=== PATIENT | female | born 1955 | race Caucasian/White ===

== ENCOUNTER → 2021-03-25 14:11 | Outpatient (CLI) | payer MEDICARE, BC, SELFPAY ==
--- NOTE | 2021-03-25 14:17 | DI.RAD.S_ITS ---
PROCEDURE: XR FOOT LT MIN 3V INDICATIONS: injury 5wk ago to 4th/5th toe, ecchymosis, still hurts TECHNIQUE: 3 views of the foot were acquired. COMPARISON: [facility], , FOOT 3V RIGHT, 03/02/2008, 17:19. FINDINGS: Bones: No fractures or dislocations. No suspicious bony lesions. Soft tissues: No tibiotalar joint effusion. Achilles tendon appears normal. IMPRESSION: Unremarkable left foot radiographs Approved by: Sim Robison M.D. on 03/25/2021 at 13:58
== END ==
PROVIDERS: Referring Provider Physician Assistant; Visit Provider Physician Assistant
DX: S99.922A Unspecified injury of left foot, initial encounter (principal); X58.XXXA Exposure to other specified factors, initial encounter
CPT/HCPCS: 73630

== ENCOUNTER → 2024-03-23 18:09 | Outpatient (CLI) | payer MEDICARE, BC, SELFPAY ==
--- NOTE | 2024-03-23 18:11 | DI.RAD.S_ITS ---
PROCEDURE: XR FOOT RT MIN 3V INDICATIONS: Right foot and ankle injury TECHNIQUE: 3 views of the foot were acquired. COMPARISON: None. FINDINGS: Bones: Minimally displaced fracture is seen at the 2nd metatarsal base. No a dee for additional midfoot fractures is compromised by overlapping osseous structures. Soft tissues: Nonspecific soft tissue edema. IMPRESSION: Minimally displaced fracture of the 2nd metatarsal base. Consider CT or MRI for further evaluation and to exclude additional midfoot injuries. Approved by: Nagi Díaz M.D. on 03/23/2024 at 18:45
--- NOTE | 2024-03-23 18:11 | DI.RAD.S_ITS ---
PROCEDURE: XR ANKLE RT MIN 3V INDICATIONS: Right foot and ankle injury TECHNIQUE: 3 views of the ankle were acquired. COMPARISON: None. FINDINGS: Bones: No acute fractures or dislocations. Ankle mortise is normally aligned. No suspicious bony lesions. Tiny plantar calcaneal enthesophyte. Soft tissues: No tibiotalar joint effusion. Achilles tendon appears normal. IMPRESSION: No acute osseous abnormality. If there is continued clinical concern or persistent symptoms, repeat radiographs or cross-sectional imaging (e.g. CT, MRI) may be helpful for further evaluation. Approved by: Nagi Díaz M.D. on 03/23/2024 at 18:42
== END ==
LOC: RAD 18:10
PROVIDERS: Referring Provider Physician Assistant Surgical; Visit Provider Physician Assistant Surgical
DX: S92.324A Nondisplaced fracture of second metatarsal bone, right foot, initial encounter for closed fracture (principal); S99.911A Unspecified injury of right ankle, initial encounter; X58.XXXA Exposure to other specified factors, initial encounter
CPT/HCPCS: 73610; 73630

== ENCOUNTER → 2024-03-31 17:06 | Outpatient (CLI) | payer MEDICARE, BC, SELFPAY ==
--- NOTE | 2024-03-31 17:07 | DI.MRI.S_ITS ---
PROCEDURE: MR FOOT RT WO CON INDICATIONS: CLOSED ND FX OF 2ND METATARSAL RT FOOT TECHNIQUE: Multiphasic, multisequence MRI of the forefoot was performed, without intravenous contrast administration. COMPARISON: [facility], CR, XR FOOT RT MIN 3V, 03/23/2024, 18:17. FINDINGS: Image quality: Excellent. Bones and joints: Minimally displaced intra-articular fracture is seen involving the 2nd metatarsal base with surrounding osseous edema. Small nondisplaced fractures are seen at the 3rd metatarsal base and distal 2nd cuneiform. Mild scattered degenerative changes of the interphalangeal joints of the toes. Degenerative edema is seen within the lateral hallux sesamoid. No suspicious intraosseous lesion. Soft tissues: Lisfranc ligament appears to be intact. Mild soft tissue edema is seen surrounding the midfoot fractures. There is grade 2-3 fatty infiltration of the intrinsic foot musculature consistent with chronic denervation changes. Visualized flexor and extensor tendons appear intact, without tenosynovitis. The distal insertions of the peroneus brevis and longus tendons appear intact. Sagittal images demonstrate no evidence for plantar plate tears. IMPRESSION: Minimally displaced intra-articular fracture of the 2nd metatarsal base with surrounding osseous edema. Additional small nondisplaced fractures of the 3rd metatarsal base and distal 2nd cuneiform with surrounding edema. Lisfranc ligament appears to remain intact. Approved by: Nagi Díaz M.D. on 04/01/2024 at 15:15
== END ==
PROVIDERS: Referring Provider Physician Assistant Medical; Visit Provider Physician Assistant Medical
DX: S92.324A Nondisplaced fracture of second metatarsal bone, right foot, initial encounter for closed fracture (principal); S92.334A Nondisplaced fracture of third metatarsal bone, right foot, initial encounter for closed fracture; X58.XXXA Exposure to other specified factors, initial encounter
CPT/HCPCS: 73718

== ENCOUNTER 2024-04-16 16:01 | Emergency (ER) | payer MEDICARE, BC, SELFPAY ==
[2024-04-16] VITALS (12 sets, daily range): BP systolic 130–158; BP diastolic 65–90; PULSE 100–123; RESP 13–20; TEMP 37.1; O2SAT 96–100; BMI 23.1
--- NOTE | 2024-04-16 16:10 | EKG_ITS ---
[address] [address] Test Date: 2024-04-16 Pat Name: Jo Hope Department: [facility] Room: Gender: Female Generator Operator: : 1955 Requested By: Order Number: [id number] Reading MD: Luis Fernando Ha MD Measurements Intervals [place] Rate: 112 P: 51 MT: 166 QRS: -64 QRSD: 98 T: 83 QT: 334 QTc: 455 Interpretive Statements Sinus tachycardia Incomplete right bundle branch block Left anterior fascicular block NO PRIOR TRACING Electronically Signed On 04-16-2024 16:28:11 PDT by Luis Fernando Ha MD
--- NOTE | 2024-04-16 16:10 | DI.RAD.S_ITS ---
PROCEDURE: XR CHEST 1V INDICATIONS: chest pain TECHNIQUE: One view of the chest was acquired. COMPARISON: None. FINDINGS: Surgical changes and devices: Surgical clips overlie the right lower lung field Lungs and pleura: Lungs are clear. No pleural effusions or pneumothorax. Mediastinum: Mediastinal contours appear normal. Heart size is normal. Bones and chest wall: No suspicious bony lesions. Overlying soft tissues appear unremarkable. IMPRESSION: No acute cardiopulmonary abnormality is seen. Approved by: Hanny Boss M.D.,Ph.D. on 04/16/2024 at 17:14
[2024-04-16 16:33] LABS: Add Manual Diff / Slide Review NO; Basophils Absolute Auto 100 /uL (0-100); Basophils Percent Auto 0.7 % (0-2); Eosinophils Absolute Auto 0 /uL (0-450); Eosinophils Percent Auto 0.2 % (2-4); Hematocrit 38.8 % (36-46); Hemoglobin 13.3 g/dL (12.0-16.0); Lymphocytes Absolute Auto 1000 /uL (1100-4500); Lymphocytes Percent Auto 11.7 % (25-40); Mean Corpuscular HGB Conc 34.3 % (30-36); Mean Corpuscular Hemoglobin 32.4 PG (26-34); Mean Corpuscular Volume 94.6 fL (80-100); Monocytes Absolute Auto 900 /uL (0-900); Monocytes Percent Auto 10.1 % (3-14); Neutrophils Absolute Auto 6700 /uL (1500-7000); Neutrophils Percent Auto 77.3 % (50-75); Platelet Count 228 X10^3/uL (150-400); Red Cell Distribution Width 14.6 % (11.6-14.8); White Blood Cell Count 8.7 X10^3/uL (4.5-11.0)
[2024-04-16 16:39] LABS: INR 0.9 (0.9-1.3); Prothrombin Time 10.4 SECONDS (9.4-12.5)
[2024-04-16 16:41] LABS: PTT Partial Thromboplastin Tim 32 SECONDS (25.1-36.5)
[2024-04-16 16:42] LABS: Alanine Aminotransferase 36 IU/L (<35); Albumin 4.8 g/dL (3.5-5.0); Albumin Globulin Ratio 1.9 (1.0-2.8); Alkaline Phosphatase 66 U/L (38-126); Aspartate Aminotransferase 38 IU/L (14-36); Bilirubin Total 0.6 mg/dL (0.2-1.3); Blood Urea Nitrogen 16 mg/dL (7-17); Carbon Dioxide 24 mmol/L (22-32); Chloride 102 mmol/L (98-107); Creatine Kinase 100 U/L (30-135); Estimated Glomerular Filt Rate > 60 mL/min (>60); Globulin 2.5 g/dL (1.7-4.1); Glucose 123 mg/dL (80-110); HEMOLYSIS < 15 (0-50); Lipase 78 U/L (23-300); Magnesium 2.1 mg/dL (1.6-2.3); Potassium 3.9 mmol/L (3.4-5.1); Sodium 135 mmol/L (137-145); Total Protein 7.3 g/dL (6.3-8.2)
[2024-04-16 16:53] LABS: NT-proBNP (BNP-Adult 18+) 182 pg/mL (<125); Troponin I < 0.012 ng/mL (0.01-0.034)
[2024-04-16] MEDS: MAG HYDROX/ALUMINUM/SIMETH SUS 20 ML, LIDOCAINE VISCOUS 2% 15 ML PO (18:08)
--- NOTE | 2024-04-16 18:12 | ED_ITS ---
HPI - Chest Pain General Chief Complaint: Chest Pain Stated Complaint: chest pain Time Seen by Provider: 04/16/24 17:36 Source: patient Mode of arrival: Wheelchair Limitations: no limitations History of Present Illness HPI narrative: Patient is a 69-year-old female history of hyperlipidemia presenting today with chest pain. She reports that she broke her foot on March 08 she was not evaluated for her foot until 2 weeks later. On March 09 she traveled from [place] to [place] to stay here for the next 5-6 weeks. She eventually saw orthopedics she was given a boot crutches and walker. She is set to go back to [place] in the next few days. She has had increasing chest pain over the last 7-10 days. No provocation or palliation. It Is nonradiating. It is in the center of her chest. She denies any sort of leg swelling or shortness of breath. She is now out of the walking boot and in tennis shoes. She has no family history of coronary artery disease she has no personal history of coronary artery disease. She is noted to be tachycardic. She reports that she took 2 Sudafed she has been having allergies over the last few days Related Data Home Medications Medication Instructions Recorded Confirmed CHOLECALCIFEROL (VITAMIN D3) 2,000 iu PO QDAY ##0 06/19/11 05/02/22 (Vitamin D) CMP Estriol Cream 0.1% vaginal 03/27/22 05/02/22 vibegron 75 mg tablet (Gemtesa) 75 mg PO DAILY 03/27/22 05/02/22 amitriptyline 25 mg tablet 25 mg PO ONCE PM 03/23/24 03/23/24 atorvastatin 20 mg tablet 20 mg PO DAILY 03/23/24 03/23/24 baclofen 20 mg tablet 20 mg PO 3XD 03/23/24 03/23/24 Previous Rx's Medication Instructions Recorded fluticasone propionate 50 0 intranasal SEE INSTRUCTIONS ##1 04/02/17 mcg/actuation nasal spray,suspension omeprazole 20 mg capsule,delayed 20 mg PO BID #180 caps 04/02/17 release alprazolam 1 mg tablet 1 mg PO BIDP PRN #60 tabs 10/02/17 levothyroxine 25 mcg tablet 0 PO SEE INSTRUCTIONS #45 tabs 10/02/17 lidocaine 5 % topical cream 1 applic topical TID PRN pain #30 04/06/22 grams Allergies Allergy/AdvReac Type Severity Reaction Status Date / Time benzoyl peroxide Allergy Mild rash Unverified 03/23/24 17:10 [BENZOYL PEROXIDE] etodolac [ETODOLAC] Allergy Mild rash Unverified 03/23/24 17:10 Patient History Medical History Anxiety Osteoporosis Disease of spine Foot pain Cervical spine disease Carpal tunnel syndrome Mumps Measles Chicken pox Painful menstrual periods Ovarian cyst Heavy menstrual period Abnormal Pap smear of cervix (~2006) Kidney disease Hematuria Irritable bowel syndrome (~2011) Surgical History Anesthesia History of cholecystectomy (~01/2022) History of elbow surgery (~07/2012) History of carpal tunnel release (~12/2011) S/P lumpectomy, right breast (~09/2006) Status post hysterectomy with oophorectomy (~05/2006) Status post colonoscopy Family History Father Stroke Mother Dementia Brother Non-Hodgkin lymphoma Sister Osteoarthritis Grandfather Lung cancer Daughter Cancer Social History Smoking Status: Never smoker Smoking Status: Never smoker Substance Use Type: does not use Exam Initial Vital Signs Initial Vital Signs: Vital Signs Temperature 98.8 F 04/16/24 16:05 Pulse Rate 122 H 04/16/24 16:05 Respiratory Rate 18 04/16/24 16:05 Blood Pressure 148/70 H 04/16/24 16:05 Pulse Oximetry 100 04/16/24 16:05 Oxygen Delivery Method Room Air 04/16/24 16:05 GENERAL: Alert pleasant 69-year-old female and in [no acute] distress. HEENT: Head atraumatic,EOMI, pupils reactive, face symmetric, [moist] mucous membranes CARDIOVASCULAR: Regular rate and rhythm without murmurs, rubs or gallops. RESPIRATORY: Breath sounds equal bilaterally, no wheezes rales or rhonchi. ABDOMEN: Soft, nontender. Normoactive bowel sounds all 4 quadrants. No guarding or rebound. EXTREMITIES: Normal range of motion, no clubbing or edema. No calf pain no swelling. Neurovascularly intact NEUROLOGICAL: Alert and oriented x4.Normal gait and speech. Cranial nerves II through XII grossly intact. SKIN: Warm, dry, no laceration, no petechiae, no rashes or lesions. Scores HEART Score Heart Score history: Slightly Suspicious Heart Score EKG: Normal Heart Score Age: > or = 65 years old Heart Score risk factors: 1-2 risk factors Heart Score troponin: < or = to normal limit Heart Score Total: 3 Course Orders Ordered: ED Orders 04/16/24 16:10 XR chest 1V Stat EKG-12 Lead Stat 04/16/24 16:15 Complete Blood Count AUTO DIFF Stat Comprehensive Metabolic Panel Stat D Dimer Stat Lipase Stat Magnesium Stat NT-proBNP (BNP-Adult 18+) Stat PTT Partial Thromboplastin Rodolfo Stat Prothrombin Time INR Stat Trop I [Troponin I] Stat Troponin & CK Cardiac Panel Stat Discontinued Medications Al Hydrox/Mg Hydrox/Simethicone 20 ml/ Lidocaine HCl 15 ml 0 ml PO NOW ONE Stop: 04/16/24 17:37 Last Admin: 04/16/24 18:08 Dose: 20 ml Documented By: MS Vital Signs Vital signs: Vital Signs - 8 hr 04/16/24 16:53 04/16/24 16:54 04/16/24 16:54 Pulse Rate 123 H 116 H Respiratory Rate Blood Pressure 158/82 H Pulse Oximetry 98 100 Oxygen Delivery Method 04/16/24 17:00 04/16/24 17:00 04/16/24 17:30 Pulse Rate 113 H 100 H Respiratory Rate 14 13 Blood Pressure 154/79 H Pulse Oximetry 100 100 Oxygen Delivery Method 04/16/24 17:30 04/16/24 18:00 04/16/24 18:00 Pulse Rate 105 H Respiratory Rate 15 Blood Pressure 130/65 134/74 Pulse Oximetry 100 Oxygen Delivery Method 04/16/24 18:48 04/16/24 18:49 04/16/24 18:49 Pulse Rate 118 H 114 H Respiratory Rate 17 Blood Pressure 141/78 H Pulse Oximetry 96 100 Oxygen Delivery Method 04/16/24 19:00 04/16/24 19:01 04/16/24 19:01 Pulse Rate 108 H 118 H Respiratory Rate 18 20 Blood Pressure 136/71 Pulse Oximetry 100 100 Oxygen Delivery Method 04/16/24 19:30 04/16/24 19:30 04/16/24 19:58 Pulse Rate 119 H 115 H Respiratory Rate 18 14 Blood Pressure 146/90 H 149/68 H Pulse Oximetry 100 100 Oxygen Delivery Method Room Air MDM - Chest Pain Lab Data 04/16/24 16:15 04/16/24 16:15 Labs: Lab Results 04/16/24 04/16/24 Range/Units 16:15 16:15 WBC 8.7 (4.5-11.0) X10^3/uL RBC 4.10 (4.0-5.2) X10^6/uL Hgb 13.3 (12.0-16.0) g/dL Hct 38.8 (36-46) % MCV 94.6 (80-100) fL MCH 32.4 (26-34) PG MCHC 34.3 (30-36) % RDW 14.6 (11.6-14.8) % Plt Count 228 (150-400) X10^3/uL Neut % (Auto) 77.3 H (50-75) % Lymph % (Auto) 11.7 L (25-40) % [place] % (Auto) 10.1 (3-14) % Eos % (Auto) 0.2 L (2-4) % Baso % (Auto) 0.7 (0-2) % Neut # (Auto) 6700 (0055-3598) /uL Lymph # (Auto) 1000 L (3902-6624) /uL [place] # (Auto) 900 (0-900) /uL Eos # (Auto) 0 (0-450) /uL Baso # (Auto) 100 (0-100) /uL PT 10.4 (9.4-12.5) SECONDS INR 0.9 (0.9-1.3) APTT 32 (25.1-36.5) SECONDS D-Dimer 357 (<500) ng/ml Sodium 135 L (137-145) mmol/L Potassium 3.9 (3.4-5.1) mmol/L Chloride 102 (98-107) mmol/L Carbon Dioxide 24 (22-32) mmol/L BUN 16 (7-17) mg/dL Creatinine 0.80 (0.52-1.04) mg/dL Estimated GFR > 60 (>60) mL/min BUN/Creatinine Ratio 20.0 (6-22) Glucose 123 H (80-110) mg/dL Calcium 10.0 (8.4-10.2) mg/dL Magnesium 2.1 (1.6-2.3) mg/dL Total Bilirubin 0.6 (0.2-1.3) mg/dL AST 38 H (14-36) IU/L ALT 36 H (<35) IU/L Alkaline Phosphatase 66 (38-126) U/L Total Creatine Kinase 100 (30-135) U/L Troponin I < 0.012 < 0.012 (0.01-0.034) ng/mL NT-Pro-B Natriuret Pep 182 H (<125) pg/mL Total Protein 7.3 (6.3-8.2) g/dL Albumin 4.8 (3.5-5.0) g/dL Globulin 2.5 (1.7-4.1) g/dL Albumin/Globulin Ratio 1.9 (1.0-2.8) Lipase 78 (23-300) U/L Imaging Data Chest x-ray: Radiologist's Impression: PROCEDURE: XR CHEST 1V INDICATIONS: chest pain TECHNIQUE: One view of the chest was acquired. COMPARISON: None. FINDINGS: Surgical changes and devices: Surgical clips overlie the right lower lung field Lungs and pleura: Lungs are clear. No pleural effusions or pneumothorax. Mediastinum: Mediastinal contours appear normal. Heart size is normal. Bones and chest wall: No suspicious bony lesions. Overlying soft tissues appear unremarkable. IMPRESSION: No acute cardiopulmonary abnormality is seen. Approved by: Hanny Boss M.D.,Ph.D. on 04/16/2024 at 17:14 ECG Data Attestation: I personally reviewed and interpreted this ECG as follows: Prior ECG tracings: available for review Interpretation: Normal sinus rhythm rate 112 DC interval 166 QRS [address] changes MDM Narrative Medical decision making narrative: Patient is a 69-year-old female with recent right foot fracture presenting today with chest pain ongoing for a number of days. She is also recently traveled from [place]. She has not complaining of shortness of breath but has been having some intermittent chest pain for the last 7-10 days. She has no known coronary artery disease. She has a heart score of 3. Blood work has been reviewed CBC does not show any leukocytosis or anemia, WBC 8.7, hemoglobin 13.3 hematocrit 38.8 platelets 220 CMP no significant RAJENDRA or electrolyte abnormality troponin is negative, sodium 135, potassium 3.9 chloride 102 carbon dioxide 24 BUN 16 creatinine 0.8 glucose 123 bili 0.6 AST 38 ALT 36 BNP 182 D-dimer is 357 Troponin negative x2 Chest x-ray does not show any acute cardiopulmonary process EKG does show tachycardia with out Q-waves or ST waves At this time I suspect atypical chest pain low suspicion for any sort pulmonary embolism she has not complaining of shortness of breath and D-dimer is less than 500. Symptoms did actually improve with GI cocktail. Recommend outpatient follow-up with her PCP and possible further outpatient cardiac testing, also discussed returning to ED if she should have new or worsening symptoms YEARS Algorithm for Pulmonary Embolism (PE) from [employer] on 04/17/2024 All calculations should be rechecked by clinician prior to use RESULT SUMMARY: PE excluded YEARS algorithm rules out PE (0.43% with symptomatic VTE during 3-month follow- up) INPUTS: patient ?> 0 = No Clinical signs of DVT ?> 0 = No Hemoptysis ?> 0 = No PE most likely diagnosis ?> 0 = No D-dimer >=,000 ng/mL FEU ?> 0 = No Discharge Plan Departure Patient Disposition: Home Clinical Impression: Atypical chest pain Instructions: DI for Atypical Chest Pain Activity Restrictions/Additional Instructions: *You have been diagnosed with atypical chest *What to do: At this time blood work is overall reassuring. I do recommend that you follow-up with your primary care provider for possible further heart testing including stress test and echocardiogram. *Continue to take medications as directed *Follow up with your primary care provider in 2-3 days or call [phone] *Return to ER if you should have increasing chest pain shortness of breath leg swelling pain or any new, worsening or concerning symptoms Prescriptions: No Action amitriptyline 25 mg tablet 25 mg PO ONCE PM atorvastatin 20 mg tablet 20 mg PO DAILY baclofen 20 mg tablet 20 mg PO 3XD CHOLECALCIFEROL (VITAMIN D3) (Vitamin D) 2,000 iu PO QDAY Qty: 0 omeprazole 20 MG capsule,delayed release(DR/EC) 20 mg PO BID Qty: 180 3RF fluticasone propionate 16 GM spray,suspension 0 Intranasal SEE INSTRUCTIONS Qty: 1 11RF levothyroxine 25 MCG tablet 0 PO SEE INSTRUCTIONS Qty: 45 3RF alprazolam 1 MG tablet 1 mg PO BIDP PRNQty: 60 3RF lidocaine 5 % cream 1 applic topical TID PRN (Reason: pain) Qty: 30 3RF CMP Estriol Cream 0.1% cream vaginal Gemtesa 75 mg tablet 75 mg PO DAILY Stand Alone Forms: Patient Portal/API
[2024-04-16 19:23] LABS: D Dimer 357 ng/ml (<500)
[2024-04-16 19:38] LABS: Troponin I < 0.012 ng/mL (0.01-0.034)
== END 2024-04-16 20:00 | disposition home or self-care (01) ==
PROVIDERS: Emergency Medicine; Emergency Provider Emergency Medicine
DX: R07.89 Other chest pain (principal); R00.0 Tachycardia, unspecified
CPT/HCPCS: 36415; 71045; 80053; 82550; 83690; 83735; 83880; 84484; 85025; 85379; 85610; 85730; 93005; 93010; 99284